=== PATIENT | male | born 1990 | race Caucasian/White ===

== ENCOUNTER 2016-05-08 18:01 | Emergency (ER) | payer MEDICAID, OTHER ==
[2016-05-08 18:13] VITALS: RESP 16; TEMP 98.2; O2SAT 98
--- NOTE | 2016-05-08 19:54 | EDPHY ---
H & P Smoking Status: Former smoker Time Seen by Provider: 05/08/16 19:38 HPI/ROS: CHIEF COMPLAINT: Abdominal pain HISTORY OF PRESENT ILLNESS: 25-year-old male presents to the emergency department the with right lower quadrant abdominal pain over the last 1 month. The patient states that his pain is been getting worse. He is concerned about his appendix. He denies any known trauma or injury. He has some mild right low back pain. He denies dysuria, urgency or frequency with urination. He denies chest pain or difficulty breathing. No fevers or chills. His appetite has been normal. No vomiting or diarrhea. REVIEW OF SYSTEMS: Constitutional: No fever, no chills. Eyes: No double or blurry vision. ENT: No sore throat. Respiratory: No cough, no shortness of breath. Cardiac: No chest pain. Gastrointestinal: Abdominal pain as above. No vomiting or diarrhea. Genitourinary: No dysuria. Musculoskeletal: No neck or back pain. Skin: No rashes. Neurological: No headache. (Jyoti Mohan) Past Medical/Surgical History: Negative (Jyoti Mohan) Social History: Single (Jyoti Mohan) Physical Exam: General Appearance: Alert, no distress. Mentating normally and answering questions appropriately. Afebrile. Eyes: Pupils equal and round. Extraocular motions are all intact. ENT: Mouth: Mucous membranes moist. Respiratory: No wheezing, rhonchi, or rales, lungs are clear to auscultation. Cardiovascular: Regular rate and rhythm. Gastrointestinal: Abdomen is soft. Tenderness with palpation especially in the right lower quadrant, overlying McBurney's point. There is no rebound, guarding or masses noted. No CVA tenderness bilaterally. Neurological: Alert and oriented x 3, cranial nerves II through XII grossly intact Skin: Warm and dry, no rashes. Musculoskeletal: Nontender to palpate along the cervical, thoracic or lumbar spine. Neck is supple. Extremities: Full range of motion and no peripheral edema. Psychiatric: Patient is oriented X 3, there is no agitation. (Jyoti Mohan) Constitutional: Initial Vital Signs Temperature (C) 36.8 C 05/08/16 18:11 Heart Rate 78 05/08/16 18:11 Respiratory Rate 16 05/08/16 18:11 Blood Pressure 125/78 H 05/08/16 18:11 O2 Sat (%) 98 05/08/16 18:11 O2 Delivery Mode Room Air Allergies/Adverse Reactions: codeine Allergy (Verified 08/10/14 10:25) hydromorphone HCl [From Dilaudid] Allergy (Verified 08/10/14 10:25) morphine Allergy (Verified 08/10/14 10:25) oxycodone Allergy (Verified 08/10/14 10:25) Penicillins Allergy (Verified 08/10/14 10:25) Medical Decision Making - Diagnostics Imaging: CT imaging of the abdomen pelvis revealed no evidence evidence of the appendix however there is no evidence of acute appendicitis. This is reported to me by Dr. Mccarty. (Jyoti Mohan) ED Course/Re-evaluation: 25-year-old male presents with right lower quadrant abdominal pain. Laboratory studies are pending. I explained to the patient that I was concerned about possible acute appendicitis. I recommended CT imaging of the abdomen and pelvis. I explained the pros and cons of CT imaging including radiation exposure the patient verbalized understanding and agreed. CT imaging of the abdomen and pelvis revealed no acute findings of appendicitis. The appendix was not visualized, however no inflammatory changes free fluid or other abnormality. I recommended the patient close follow-up with primary care provider or return here in 8-12 hours if she continued to have ongoing abdominal pain. He was instructed to return if he developed worsening abdominal pain, fever, vomiting, or if he felt worse in any way. The patient was comfortable with this plan. He did have evidence of constipation on CT scan and I recommended over-the- counter magnesium citrate to help relieve this. (Jyoti Mohan) This patient was evaluated and managed by the physician advertising sales assistant.I have reviewed the charge and agree was the plan of care. I am the secondary supervising physician. (Elizabet Carnes) Differential Diagnosis: Including but not limited to acute appendicitis, urinary tract infection, kidney stone, pyelonephritis, mesenteric adenitis (Jyoti Mohan) - Data Points Laboratory Results: Laboratory Results 05/08/16 19:36 05/08/16 19:36 Medications Given: Discontinued Medications Sodium Chloride (Ns) 1,000 mls @ 0 mls/hr IV ONCE ONE PRN Reason: Wide Open Stop: 05/08/16 20:49 Last Admin: 05/08/16 21:30 Dose: 1,000 mls Departure - Departure Disposition: Home, Routine, Self-Care Clinical Impression: Abdominal pain Qualifiers: Abdominal location: right lower quadrant Qualified Code(s): R10.31 - Right lower quadrant pain Condition: Good Instructions: Constipation (ED), High Fiber Diet (ED), Abdominal Pain (ED) Additional Instructions: Abdominal Pain: Return to the Emergency Department immediately for increasing pain, fever, vomiting, or if not completely better in 8-12 hours. You have evidence of constipation under CT scan. Drink plenty of fluids. Eat high-fiber foods. You may also try [id number] magnesium citrate to help clean your bowels out. Referrals: Syeda Becerra MD [Medical Doctor] - 1 day, if not improved (Primary care provider global position system technician)
[2016-05-08 19:58] LABS: % IMMATURE GRANULYOCYTES 0.2 % (0.0-1.1); ABSOLUTE IMMATURE GRANULOCYTES 0.01 10^3/uL (0.00-0.10); ADD DIFF? NO; ADD MORPH? NO; ADD SCAN? NO; ATYPICAL LYMPHOCYTE FLAG 20 (0-99); FRAGMENT RBC FLAG 0 (0-99); HEMATOCRIT 46.4 % (40.0-51.0); HEMOGLOBIN 16.8 g/dL (13.7-17.5); LEFT SHIFT FLG 0 (0-99); LIPEMIA HEMOLYSIS FLAG 90 (0-99); MEAN CELL HEMOGLOBIN 30.7 pg (27.9-34.1); MEAN CELL HEMOGLOBIN CONCENTR. 36.2 g/dL (32.4-36.7); MEAN CELL VOLUME 84.7 fL (81.5-99.8); MEAN PLATELET VOLUME 9.6 fL (8.7-11.7); PLATELET CLUMPS FLAG 0 (0-99); PLATELET COUNT 242 10^3/uL (150-400); RED BLOOD CELL COUNT 5.48 10^6/uL (4.40-6.38); RED CELL DISTRIBUTION WIDTH 11.9 % (11.5-15.2)
[2016-05-08 20:17] LABS: ANION GAP 10 mEq/L (8-16); CALCIUM 9.4 mg/dL (8.5-10.4); CARBON DIOXIDE 24 mEq/l (22-31); CHLORIDE 103 mEq/L (97-110); CREATININE 1.2 mg/dL (0.7-1.3); GLOMERULAR FILTRATION RATE > 60; GLUCOSE 94 mg/dL (70-100); POTASSIUM 4.2 mEq/L (3.5-5.2); SODIUM 137 mEq/L (134-144)
[2016-05-08 20:21] LABS: COLOR YELLOW; LEUKOCYTE ESTERASE,URINE NEGATIVE (NEGATIVE); MUCUS TRACE /lpf (NONE-1+); NITRITE,URINE NEGATIVE (NEGATIVE)
[2016-05-08] MEDS ORDERED: NS 1,000 ML IV ONE (20:48)
[2016-05-08] MEDS ORDERED: IOPAMIDOL (ISOVUE-300) 100 ML BTL IV ONE (20:55)
[2016-05-08 22:18] VITALS: BP 115/68; PULSE 71
== END 2016-05-08 22:17 | disposition home or self-care (01) ==
DX: R10.31 Right lower quadrant pain (principal); Z87.891 Personal history of nicotine dependence
CPT/HCPCS: Q9967

== ENCOUNTER 2016-09-11 10:48 | Emergency (ER) | payer MEDICAID ==
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
[2016-09-11] MEDS ORDERED: SILVER SULFADIAZINE 50 GM JAR TP ONE (11:57)
[2016-09-11 12:16] VITALS: BP 117/74; PULSE 87; RESP 14; TEMP 98.4; O2SAT 94
== END 2016-09-11 12:15 | disposition home or self-care (01) ==
DX: T24.202A Burn of second degree of unspecified site of left lower limb, except ankle and foot, initial encounter (principal); T20.26XA Burn of second degree of forehead and cheek, initial encounter; X03.0XXA Exposure to flames in controlled fire, not in building or structure, initial encounter